=== PATIENT | male | born 1980 | race Caucasian/White ===

== ENCOUNTER 2017-08-14 03:38 | Emergency (ER) | payer OTHER ==
[~2017-08-14 03:38] MED LIST: Bactrim Ds Tab1 EACH PO; CONTOUR NEXT1 EACH MC; HYDACE5 PO; HYDACE5325 PO; Humalog100 UNIT/1; Humalog100 UNIT/1 SC; Humalog100 UNIT/1 SQ; INSLI100I; INSLI100I SC; INSR10I SQ; INSULANI; INSULANPEN SC; Lantus100 UNIT/1 SC; NAPR550 PO; Novolin R100 UNIT/M SC; One Touch Ultr1 EACH IN; Percocet 5-3251 EACH PO; SULTRIDS PO; Veetids 500500 MG PO
== END 2017-08-14 04:26 | disposition left against medical advice (07) ==
LOC: ER 03:38
DX: Z53.21 Procedure and treatment not carried out due to patient leaving prior to being seen by health care provider (principal)

== ENCOUNTER 2017-10-29 23:17 | Emergency (ER) | payer OTHER | END 2017-10-29 23:52 | disposition left against medical advice (07) | LOC: ER 23:17 | DX: Z53.21 Procedure and treatment not carried out due to patient leaving prior to being seen by health care provider (principal) ==

== ENCOUNTER 2018-01-05 15:57 | Emergency (ER) | payer OTHER ==
[~2018-01-05] VITALS: Ht 175.3 cm; Wt 65.8 kg
[2018-01-05] MEDS ORDERED: BASAGLAR K100 UNIT/1 SC (17:13)
[2018-01-05] MEDS ORDERED: Humalog100 UNIT/1 SC (17:14)
[2018-01-05] MEDS ORDERED: INSULIN PEN NE1 EACH SC (17:16)
== END 2018-01-07 17:26 | disposition home or self-care (01) ==
LOC: ER 15:57
DX: Z76.0 Encounter for issue of repeat prescription (principal); E10.9 Type 1 diabetes mellitus without complications; F17.200 Nicotine dependence, unspecified, uncomplicated; Z88.0 Allergy status to penicillin; Z79.4 Long term (current) use of insulin
CPT/HCPCS: 99281

== ENCOUNTER 2018-07-07 13:35 | Inpatient (IN) | payer OTHER ==
[~2018-07-07] VITALS: Ht 175.3 cm; Wt 62.0 kg
[~2018-07-07 13:35] MED LIST changes: +BASAGLAR K100 UNIT/1 SC; +CEPH500 PO; +CHLO25 PO; +INSULIN PEN NE1 EACH SC; +[UNRECOGNIZED DRUG - OTHER] INJ
[2018-07-07] MEDS ORDERED: ADMELOG SO100 UNIT/1 SQ (13:48)
[2018-07-07] MEDS ORDERED: INSULANPEN (13:48)
[2018-07-07 14:12] LABS: BASOPHILS ABSOLUTE AUTO 0.05 K/mm3 (0.00-0.23); BASOPHILS PERCENT AUTO 1 % (0-2); EOSINOPHILS ABSOLUTE AUTO 0.09 K/mm3 (0.00-0.68); EOSINOPHILS PERCENT AUTO 1 % (0-6); Hematocrit 45.7 % (37.0-53.0); Hemoglobin 14.8 g/dL (13.5-17.5); IMMATURE GRAN ABSOLUTE AUTO 0.06 K/mm3 (0.00-0.10); IMMATURE GRAN PERCENT AUTO 1 % (0-1); LYMPHOCYTES ABSOLUTE AUTO 2.52 K/mm3 (0.84-5.20); LYMPHOCYTES PERCENT AUTO 28 % (21-46); MONOCYTES ABSOLUTE AUTO 0.49 K/mm3 (0.16-1.47); MONOCYTES PERCENT AUTO 6 % (4-13); Mean Corpuscular HGB 30.9 pg (26.0-34.0); Mean Corpuscular HGB Conc 32.4 g/dL (31.5-36.5); Mean Corpuscular Volume 95 fL (80-100); Mean Platelet Volume 9.6 fL (9.1-12.4); NEUTROPHILS ABSOLUTE AUTO 5.75 K/mm3 (1.96-9.15); NEUTROPHILS PERCENT AUTO 64 % (41-73); Platelet Count 401 K/mm3 (150-400); RDW Coefficient Variation 11.7 % (11.7-14.2); RDW Standard Deviation 41.1 fL (35.1-46.3); Red Blood Cell Count 4.79 M/mm3 (4.30-5.90); White Blood Cell Count 8.96 K/mm3 (4.00-11.30)
[2018-07-07 14:51] LABS: Alanine Aminotransfer (ALT/SGP 142 U/L (12-78); Albumin, Blood 3.8 g/dL (3.4-5.0); Alk Phos 157 U/L (50-136); Anion Gap 21 mmol/L (6-16); Aspartate Aminotrans (AST/SGOT 79 U/L (12-37); Bilirubin, Total 1.1 mg/dL (0.1-1.0); Blood Urea Nitrogen 32 mg/dL (8-24); Bun/Creatinine Ratio 38.9 (12.0-20.0); CO2, Blood 14 mmol/L (21-32); Calcium, Blood 8.8 mg/dL (8.5-10.1); Chloride, Blood 86 mmol/L (98-108); Creatinine, Blood 0.82 mg/dL (0.60-1.20); Globulin, Blood 3.7 g/dL (2.2-4.0); Glomerular Filtration Rate >60 (60-); Glucose, Blood 702 mg/dL (70-99); Potassium, Blood 5.5 mmol/L (3.5-5.5); Sodium, Blood 121 mmol/L (136-145); Total Protein, Blood 7.5 g/dL (6.4-8.2)
[2018-07-07 15:12] LABS: PCO2 Arterial 26.3 mmHg (35-45); PO2 Arterial 96.6 mmHg (80-100); pH Blood Arterial 7.21 (7.35-7.45)
[2018-07-07 16:02] LABS: Glucose, Blood 583 mg/dL (70-99)
--- NOTE | 2018-07-07 18:00 | NUR ---
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 He has 20ga IV in RH and 20ga IV in LAC which was pulled shortly as causing him to much pain. His insulin was infusing at 6.6 unit/hr. He was slightly emotional about situation and that he had no way to inform family about where he was. He is on RA and sats in the high 90%'s. He has scab from scatches on upper and lower extremities. He has healing wound on upper left thigh that was told to him may have MRSA and swabbed and sent to lab. He stated not feeling well and has productive cough and swabbed him for influenza. Admission was done and gave him Tylenol for generalized pain and he tolerated meds and water well. He will be independent in room and assist with lines and tubes.
[2018-07-07 18:55] LABS: Magnesium, Blood 2.1 mg/dL (1.6-2.4)
[2018-07-07 19:06] LABS: Anion Gap 11 mmol/L (6-16); Blood Urea Nitrogen 25 mg/dL (8-24); Bun/Creatinine Ratio 39.6 (12.0-20.0); CO2, Blood 23 mmol/L (21-32); Calcium, Blood 8.5 mg/dL (8.5-10.1); Chloride, Blood 99 mmol/L (98-108); Creatinine, Blood 0.63 mg/dL (0.60-1.20); Glomerular Filtration Rate >60 (60-); Glucose, Blood 211 mg/dL (70-99); Phosphorus, Blood 4.1 mg/dL (2.5-4.9); Potassium, Blood 3.9 mmol/L (3.5-5.5)
[2018-07-07 19:15] LABS: Sodium, Blood 133 mmol/L (136-145)
[2018-07-07 19:47] LABS: Influenza A Negative (NEGATIVE); Influenza B Negative (NEGATIVE)
--- NOTE | 2018-07-07 21:16 | NUR ---
PATIENT RESTING QUIETLY AWAKENS EASILY, FOLLOWING DIRECTIONS, FALLING BACK TO SLEEP EASILY. AT 2009 DOCTOR BRODERICK CALLED AND GIVEN UP DATE ON PATIENT AND HIS REQUEST FOR FOOD. ORDER OBTAINED FOR LIQUID DIET FOR TONIGHT, AND TO CONTINUE INSULIN DRIP. INSULIN DRIP AT 2 UNITS AND D5 1/2NS FLUIDS STARTED. PATIENT VERBALIZED HE IS WORRIED ABOUT HIS AND IS UNABLE TO CONTACT HER, THE NUMBER HE HAS FOR HIS [facility] HAS BEEN DISCONNECTED, AND PATIENT VERBALIZED THAT HIS MOTHER WOULD NOT GO OUT TO INFORM HIS OF HIS BEING ADMITTED TO THE HOSPITAL.
[2018-07-07 22:33] LABS: Anion Gap 8 mmol/L (6-16); Blood Urea Nitrogen 20 mg/dL (8-24); Bun/Creatinine Ratio 33.8 (12.0-20.0); CO2, Blood 25 mmol/L (21-32); Chloride, Blood 101 mmol/L (98-108); Creatinine, Blood 0.59 mg/dL (0.60-1.20); Glomerular Filtration Rate >60 (60-); Glucose, Blood 131 mg/dL (70-99); Phosphorus, Blood 4.3 mg/dL (2.5-4.9); Sodium, Blood 134 mmol/L (136-145)
[2018-07-07 23:31] LABS: Source, Urine Clean Catch
[2018-07-07 23:33] LABS: Bilirubin, Urine Neg (Neg); Blood, Urine Neg (Neg); Glucose Qualitative, Urine 4+ (Neg); Ketones, Urine 3+ (Neg); Leukocyte Esterase, Urine Neg (Neg); Nitrite, Urine Neg (Neg); Protein, Urine Neg (Neg); Urobilinogen, Urine NORM (Normal)
[2018-07-07 23:38] LABS: Appearance, Urine Clear (Clear); Color, Urine Yellow (P-Yellow)
[2018-07-08 02:54] LABS: BASOPHILS ABSOLUTE AUTO 0.04 K/mm3 (0.00-0.23); BASOPHILS PERCENT AUTO 0 % (0-2); EOSINOPHILS ABSOLUTE AUTO 0.28 K/mm3 (0.00-0.68); EOSINOPHILS PERCENT AUTO 3 % (0-6); Hematocrit 42.6 % (37.0-53.0); Hemoglobin 14.3 g/dL (13.5-17.5); IMMATURE GRAN ABSOLUTE AUTO 0.04 K/mm3 (0.00-0.10); IMMATURE GRAN PERCENT AUTO 0 % (0-1); LYMPHOCYTES PERCENT AUTO 44 % (21-46); MONOCYTES ABSOLUTE AUTO 0.84 K/mm3 (0.16-1.47); MONOCYTES PERCENT AUTO 8 % (4-13); Mean Corpuscular HGB 30.5 pg (26.0-34.0); Mean Corpuscular HGB Conc 33.6 g/dL (31.5-36.5); Mean Platelet Volume 8.9 fL (9.1-12.4); NEUTROPHILS ABSOLUTE AUTO 4.37 K/mm3 (1.96-9.15); NEUTROPHILS PERCENT AUTO 44 % (41-73); Platelet Count 381 K/mm3 (150-400); RDW Coefficient Variation 11.9 % (11.7-14.2); RDW Standard Deviation 39.3 fL (35.1-46.3); Red Blood Cell Count 4.69 M/mm3 (4.30-5.90); White Blood Cell Count 9.97 K/mm3 (4.00-11.30)
[2018-07-08 02:55] LABS: Mean Corpuscular Volume 91 fL (80-100)
[2018-07-08 03:11] LABS: Alanine Aminotransfer (ALT/SGP 92 U/L (12-78); Albumin, Blood 2.9 g/dL (3.4-5.0); Alk Phos 114 U/L (50-136); Anion Gap 8 mmol/L (6-16); Aspartate Aminotrans (AST/SGOT 32 U/L (12-37); Bilirubin, Direct 0.1 mg/dL (0.0-0.3); Bilirubin, Indirect 0.6 mg/dL (0.1-0.7); Bilirubin, Total 0.7 mg/dL (0.1-1.0); Blood Urea Nitrogen 19 mg/dL (8-24); Bun/Creatinine Ratio 31.5 (12.0-20.0); CO2, Blood 25 mmol/L (21-32); Calcium, Blood 7.9 mg/dL (8.5-10.1); Chloride, Blood 106 mmol/L (98-108); Glomerular Filtration Rate >60 (60-); Glucose, Blood 93 mg/dL (70-99); Phosphorus, Blood 3.4 mg/dL (2.5-4.9); Potassium, Blood 3.5 mmol/L (3.5-5.5); Sodium, Blood 139 mmol/L (136-145); Total Protein, Blood 5.9 g/dL (6.4-8.2)
--- NOTE | 2018-07-08 07:24 | NUR ---
PATIENT SLEEPING OFF AND ON T/O NIGHT. INSULIN DRIP CONTINUES SEE FLOW SHEET FOR TITRATION. IS AT 2 UNITS AT THIS TIME. D5 1/2NS CONTINUES. PATIENT CAYDEN LIQUID DIET WITHOUT DIFFICULTY.
--- NOTE | 2018-07-08 07:54 | NUR ---
ASSUMED CARE: REPORT RECEIVED FROM JORDAN Marin RN. ASSUMED CARE OF THIS PT AT APPROX 0700. ON ASSESSMENT, THE PT IS RESTING QUIETLY. HE DENIES PAIN BUT STS HE IS VERY HUNGRY THIS MORNING. JELL-O PROVIDED FOR SNACK AFTER CBG CHECK. CBG & INSULIN DRIP TITRATION CHARTED IN FLOWSHEET. WILL CONTINUE TO MONITOR & UPDATE NEEDED.
--- NOTE | 2018-07-08 08:55 | NUR ---
DR. DONOVAN: PROVIDER AT BEDSIDE TO SEE PT. PLANS TO START LONG-ACTING INSULIN & DISCONTINUE INSULIN DRIP ONE HOUR AFTER [facility] ADMIN. ORDERS HAVE BEEN PLACED. PT COULD POSS STATUS CHANGE OR D/C HOME THIS EVENING IF CBG REMAINS STABLE. WILL CONTINUE TO MONITOR & UPDATE NEEDED.
--- NOTE | 2018-07-08 16:33 | NUR ---
Per admit trigger, I attempted to meet with Abelino to discuss Advanced Directive. He is very tired and appears frail. He awakens briefly. He did not want visit. No family present. I left information packet on bedside table and will remain available to pt and family.
--- NOTE | 2018-07-08 17:38 | NUR ---
SHIFT SUMMARY / TRANSFER ROOM ASSIGNMENT: NO ACUTE CHANGES THIS SHIFT. PT REMAINS A&O, PLEASANT & COOPERATIVE W/ CARE. HE HAS RESTED WELL INTERMITTENTLY THIS SHIFT. INSULIN DRIP HAS BEEN OFF SINCE APPROX 1100. CBG STABLE AT THIS TIME. PT TOLERATING PO INTAKE WELL W/ NO C/O NAUSEA, BT x4. LS ARE CLEAR T/O, PT REMAINS ON RA W/ O2 SATS > 92%. VOIDING CLEAR YELLOW URINE W/O DIFFICULTY USING URINAL. PT's SKIN REMAINS UNCHANGED & IN POOR CONDITION OVERALL W/ SMALL & LARGE SCABS SCATTERED T/O. ROOM 328 HAS BEEN ASSIGNED FOR PT TRANSFER. THIS RN CALLED RN TO ASSUME CARE. ROOM HAS NOT YET BEEN CLEANED, RN TO ASSUME CARE WILL NOTIFY THIS RN WHEN THAT OCCURS SO THAT REPORT MAY BE GIVEN. WILL CONTINUE TO MONITOR & REPORT OFF TO RN ASSUMING CARE.
--- NOTE | 2018-07-08 22:32 | NUR ---
1920 PT RECEIVED FROM ICU VIA STRETCHER INTO ROOM 328. PT EDUCATED AND ORIENTED TO ROOM, BED CONTROLS, HOW CONTACT STAFF, IV PATENT. DENIES NAUSEA OR PAIN. PT NUMEROUS SCABBED AREAS NOTED ON BILATERAL ARMS AND LOWER LEGS. PT SAYS HE USES METH DAILY PAST TWO YEARS.
--- NOTE | 2018-07-09 02:26 | NUR ---
PT CALLED AND C/O LOW BLOOD SUGAR, GLUCOSE 53. PT GIVEN CHOCOLATE MILK AND YOGURT X 2, APPLE JUICE X 1 120ML
--- NOTE | 2018-07-09 04:30 | NUR ---
38 Y/O MALE RESTED QUIETLY ALL EVENING. PT HAD LOW BLOOD SUGAR OF 53 AT 0230 WITH SNACKS PROVIDED, GLUCOSE AT 0257 WAS 147. PT FELT MUCH BETTER AFTER EATING SNACK. PT DENIES PAIN OR NAUSEA. PTS BED LOW POSITION, CALL LIGHT AT SIDE.
[2018-07-09 05:05] LABS: Albumin, Blood 2.6 g/dL (3.4-5.0); Anion Gap 10 mmol/L (6-16); Blood Urea Nitrogen 15 mg/dL (8-24); CO2, Blood 25 mmol/L (21-32); Calcium, Blood 7.5 mg/dL (8.5-10.1); Chloride, Blood 104 mmol/L (98-108); Creatinine, Blood 0.62 mg/dL (0.60-1.20); Glomerular Filtration Rate >60 (60-); Glucose, Blood 223 mg/dL (70-99); Phosphorus, Blood 3.2 mg/dL (2.5-4.9); Potassium, Blood 3.9 mmol/L (3.5-5.5); Sodium, Blood 139 mmol/L (136-145)
[2018-07-09] MEDS ORDERED: Humalog100 UNIT/1 SC (11:19)
--- NOTE | 2018-07-09 13:40 | NUR ---
SHIFT SUMMARY PATIENT A&O X4, INDEPENDENT IN THE ROOM. DENIES ANY PAIN OR SOB THIS SHIFT. DISCHARGE INFORMATION REVIEWED. [facility]. IV IN R UA AND R WRIST D/C, BOTH WNL. PATIENT EDUCATION PROVIDED. PATIENT ESCORTED SELF OUT, ALL BELONINGS IN HAND.
== END 2018-07-09 11:53 | disposition home or self-care (01) | DRG 638 ==
LOC: ER 13:35 → ICUW 16:22 → MEDS 07-08 19:40 → ENPENDDIS 07-09 11:51 → MEDS 07-09 11:53
PROVIDERS: Internal Medicine; ADMIT Internal Medicine
PROC: 3E0234Z Introduction of Serum, Toxoid and Vaccine into Muscle, Percutaneous Approach (ICD-10-PCS; principal; 2018-07-07)
DX: E10.10 Type 1 diabetes mellitus with ketoacidosis without coma (principal); Z23 Encounter for immunization; E87.1 Hypo-osmolality and hyponatremia; E86.0 Dehydration; F19.10 Other psychoactive substance abuse, uncomplicated; R74.0 Nonspecific elevation of levels of transaminase and lactic acid dehydrogenase [LDH]; Z91.14 Patient's other noncompliance with medication regimen; Z79.4 Long term (current) use of insulin
CPT/HCPCS: 36415; 36600; 71045; 80048; 80053; 80069; 80076; 81003; 82010; 82803; 82947; 83036; 83735; 84100; 85025; 87081; 87804; 90686; 96360; 96361; 99285-25; C9113; G0008; J1650; J1815; J1956; J2185; J7030; J7042; J7120

== ENCOUNTER 2019-01-02 00:06 | Emergency (ER) | payer OTHER ==
[~2019-01-02] VITALS: Ht 175.3 cm; Wt 70.3 kg
[~2019-01-02 00:06] MED LIST changes: +ADMELOG SO100 UNIT/1 SQ; +INSULANPEN
== END 2019-01-02 01:22 | disposition home or self-care (01) ==
LOC: ER 00:06
DX: S61.213A Laceration without foreign body of left middle finger without damage to nail, initial encounter (principal); E10.9 Type 1 diabetes mellitus without complications; F17.290 Nicotine dependence, other tobacco product, uncomplicated; Z88.1 Allergy status to other antibiotic agents; W25.XXXA Contact with sharp glass, initial encounter
CPT/HCPCS: 12001; 90471; 90714; 99282-25

== ENCOUNTER 2019-07-31 03:58 | Emergency (ER) | payer OTHER, BC ==
[~2019-07-31] VITALS: Ht 175.3 cm; Wt 68.0 kg
[2019-07-31] MEDS ORDERED: CEPH500 PO (04:17)
== END 2019-07-31 04:57 | disposition home or self-care (01) ==
LOC: ER 03:58
DX: S81.831A Puncture wound without foreign body, right lower leg, initial encounter (principal); E10.9 Type 1 diabetes mellitus without complications; F17.290 Nicotine dependence, other tobacco product, uncomplicated; Z88.0 Allergy status to penicillin; Z79.899 Other long term (current) drug therapy; W26.0XXA Contact with knife, initial encounter
CPT/HCPCS: 12001; 99282-25; A9270-GY

== ENCOUNTER 2020-04-22 07:14 | Emergency (ER) | payer BC, OTHER ==
[~2020-04-22] VITALS: Ht 175.3 cm; Wt 68.0 kg
[2020-04-22] MEDS ORDERED: Percocet 5-3251 EACH PO (08:15)
[2020-04-22] MEDS ORDERED: IBUP400 PO (08:15)
[2020-04-22] MEDS ORDERED: Cleocin HCl300 MG PO (08:15)
== END 2020-04-22 08:23 | disposition home or self-care (01) ==
LOC: ER 07:14
DX: K04.7 Periapical abscess without sinus (principal); M27.8 Other specified diseases of jaws; E10.9 Type 1 diabetes mellitus without complications; F17.290 Nicotine dependence, other tobacco product, uncomplicated; Z88.0 Allergy status to penicillin
CPT/HCPCS: 99282; A9270

== ENCOUNTER → 2023-09-26 | Outpatient (CLI) | payer OTHER ==
[~2023-09-26] MED LIST changes: +AMOCLA875 PO; +Cleocin HCl300 MG PO; +IBUP400 PO
[2023-09-26 13:19] LABS: Adenovirus F 40/41 Not Detected (NOT DETECT); Astrovirus Not Detected (NOT DETECT); Campylobacter Sp Not Detected (NOT DETECT); Cryptosporidium Not Detected (NOT DETECT); Cyclospora Cayetanensis Not Detected (NOT DETECT); E. Coli O157 Not Detected (NOT DETECT); Entamoeba Histolytica Not Detected (NOT DETECT); Enteroaggregative E. coli-EAEC Not Detected (NOT DETECT); Enteropathogenic E. coli-EPEC Not Detected (NOT DETECT); Enterotoxigenic E. coli-ETEC Not Detected (NOT DETECT); Giardia Lamblia Not Detected (NOT DETECT); Norovirus GI/GII Not Detected (NOT DETECT); Plesiomonas Shigelloides Not Detected (NOT DETECT); Rotavirus A Not Detected (NOT DETECT); Salmonella Sp Not Detected (NOT DETECT); Sapovirus Not Detected (NOT DETECT); Shiga Toxin-prod E. coli-STEC Not Detected (NOT DETECT); Shigella/Enteroin E. coli-EIEC Not Detected (NOT DETECT); Vibrio Cholerae Not Detected (NOT DETECT); Vibrio Sp Not Detected (NOT DETECT); Yersinia Enterocolitica Not Detected (NOT DETECT)
== END ==
LOC: LAB 08:30 → LAB SHORT 08:30
PROVIDERS: Chiropractor
DX: R11.2 Nausea with vomiting, unspecified (principal); R19.7 Diarrhea, unspecified
CPT/HCPCS: 87507

== ENCOUNTER 2024-05-27 19:25 | Emergency (ER) | payer OTHER ==
[~2024-05-27] VITALS: Ht 175.3 cm; Wt 70.3 kg
[2024-05-27 19:48] VITALS: BP 125/74
== END 2024-05-27 21:02 | disposition home or self-care (01) ==
LOC: ER 19:25
DX: S49.92XA Unspecified injury of left shoulder and upper arm, initial encounter (principal); W31.9XXA Contact with unspecified machinery, initial encounter; E10.9 Type 1 diabetes mellitus without complications; F17.210 Nicotine dependence, cigarettes, uncomplicated; Z88.0 Allergy status to penicillin; Z79.4 Long term (current) use of insulin; Z79.899 Other long term (current) drug therapy
CPT/HCPCS: 73060; 99283-25

== ENCOUNTER 2025-02-11 01:39 | Emergency (ER) | payer OTHER ==
[~2025-02-11] VITALS: Ht 175.3 cm; Wt 72.6 kg
[2025-02-11 02:26] VITALS: BP 133/75
[2025-02-11] MEDS ORDERED: BACTRIM DS TAB1 EAC1 PO (02:45)
== END 2025-02-11 03:04 | disposition home or self-care (01) ==
LOC: ER 01:39
DX: L03.211 Cellulitis of face (principal); E10.9 Type 1 diabetes mellitus without complications; Z88.8 Allergy status to other drugs, medicaments and biological substances; Z79.4 Long term (current) use of insulin; F17.290 Nicotine dependence, other tobacco product, uncomplicated
CPT/HCPCS: 99282